=== PATIENT | female | born 1980 | race Caucasian/White ===

== ENCOUNTER 2017-02-28 04:39 | Emergency (ER) | payer MEDICAID | END 2017-02-28 05:49 | disposition home or self-care (01) | LOC: D.ER 04:39 | DX: J02.9 Acute pharyngitis, unspecified (principal) ==

== ENCOUNTER 2017-03-05 20:24 | Emergency (ER) | payer MEDICAID | END 2017-03-06 00:35 | disposition home or self-care (01) | LOC: D.ER 20:24 | DX: J02.9 Acute pharyngitis, unspecified (principal) ==